=== PATIENT | male | born 1955 | race Native Hawaiian/Other Pacific Islander ===

== ENCOUNTER 2017-08-18 17:02 | Outpatient (CLI) | payer BC ==
[2017-08-18 17:12] LABS: PLATELET COUNT 244 K/uL (142-355)
[2017-08-18 17:44] LABS: POTASSIUM 4.4 mmol/L (3.6-5.2)
== END 2017-08-18 19:16 | disposition home or self-care (01) ==
LOC: LAB 17:02
PROVIDERS: Internal Medicine
DX: Z00.00 Encounter for general adult medical examination without abnormal findings (principal)
CPT/HCPCS: 36415; 80053; 80061; 81000; 84153; 84443; 85027

== ENCOUNTER 2017-08-19 16:35 | Outpatient (CLI) | payer BC | END 2017-08-19 23:35 | disposition home or self-care (01) | LOC: LAB 16:35 | DX: E11.9 Type 2 diabetes mellitus without complications (principal) | CPT/HCPCS: 83036 ==

== ENCOUNTER 2018-11-18 12:33 | Outpatient (CLI) | payer BC | END 2018-11-18 20:32 | disposition home or self-care (01) | LOC: RAD 12:33 | DX: M79.672 Pain in left foot (principal) ==

== ENCOUNTER 2018-12-14 10:02 | Outpatient (CLI) | payer BC | END 2018-12-14 20:27 | disposition home or self-care (01) | LOC: LABW 10:02 | DX: E11.9 Type 2 diabetes mellitus without complications (principal) | CPT/HCPCS: 36415; 83036 ==

== ENCOUNTER 2020-02-09 08:18 | Outpatient (CLI) | payer BC ==
[2020-02-09 08:30] LABS: PLATELET COUNT 211 K/uL (142-355)
[2020-02-09 08:49] LABS: POTASSIUM 4.6 mmol/L (3.6-5.2)
== END 2020-02-09 18:57 | disposition home or self-care (01) ==
LOC: LABW 08:18
PROVIDERS: ATTEND Internal Medicine Cardiovascular Disease
DX: E78.5 Hyperlipidemia, unspecified (principal); E11.59 Type 2 diabetes mellitus with other circulatory complications; I25.10 Atherosclerotic heart disease of native coronary artery without angina pectoris
CPT/HCPCS: 36415; 80053; 80061; 83036; 85027

== ENCOUNTER 2020-09-28 07:50 | Outpatient (CLI) | payer BC | END 2020-09-28 19:03 | disposition home or self-care (01) | LOC: US 07:50 | PROVIDERS: ATTEND Internal Medicine Cardiovascular Disease | DX: R09.89 Other specified symptoms and signs involving the circulatory and respiratory systems (principal) ==

== ENCOUNTER 2021-03-11 12:30 | Inpatient (IN) | payer BC ==
[~2021-03-11] VITALS: Ht 180.3 cm; Wt 136.6 kg
[2021-03-11 14:12] LABS: PLATELET COUNT 262 K/uL (142-355)
[2021-03-11 14:36] LABS: POTASSIUM 3.4 mmol/L (3.6-5.2)
[2021-03-11] MEDS ORDERED: AMOXICILLIN PO (15:21)
[2021-03-11] MEDS ORDERED: CLA PO (15:21)
[2021-03-11] MEDS ORDERED: CIPROFLOXACIN500 M1 PO (15:22)
[2021-03-11] MEDS ORDERED: REPATHA SUR140 MG/ML SC (15:23)
[2021-03-11] MEDS ORDERED: AMLODIPINE BESYLATE PO (15:24)
[2021-03-11] MEDS ORDERED: HYZAAR1 TA2 PO (15:25)
[2021-03-11] MEDS ORDERED: VICTOZA18 MG/3 ML SC (15:26)
[2021-03-11] MEDS ORDERED: INSU300I SC (15:26)
[2021-03-11] MEDS ORDERED: METO50TA27 PO (15:28)
[2021-03-11] MEDS ORDERED: ASPIR-8181 MG PO (15:29)
[2021-03-11 15:30] VITALS: BP 144/72; TEMP 97.8; Ht 180.3 cm; Wt 136.6 kg
[2021-03-11 16:00] VITALS: BP 138/68; TEMP 97.7
[2021-03-11 20:00] VITALS: BP 148/68; TEMP 98.6
[2021-03-12] VITALS: BP 134/58; TEMP 99.3
[2021-03-12 04:00] VITALS: BP 111/60; TEMP 98.2
[2021-03-12 08:00] VITALS: BP 136/62; TEMP 98.3
[2021-03-12 08:36] LABS: POTASSIUM 3.3 mmol/L (3.6-5.2)
[2021-03-12 08:48] LABS: PLATELET COUNT 260 K/uL (142-355)
[2021-03-12 12:00] VITALS: BP 133/62; TEMP 97.6
[2021-03-12 16:00] VITALS: BP 133/63; TEMP 98.3
[2021-03-12 20:00] VITALS: BP 143/59; TEMP 97.9
[2021-03-13] VITALS: BP 133/59; TEMP 98.7
[2021-03-13 04:00] VITALS: BP 131/44; TEMP 98.6
[2021-03-13 08:00] VITALS: BP 151/74; TEMP 98.3
[2021-03-13 20:25] VITALS: BP 146/66; TEMP 98.6
[2021-03-14 00:17] VITALS: BP 149/74; TEMP 99.7
[2021-03-14 03:52] VITALS: BP 159/62; TEMP 100
[2021-03-14 08:00] VITALS: BP 156/66; TEMP 98.7
[2021-03-14 09:12] LABS: PLATELET COUNT 219 K/uL (142-355)
[2021-03-14 09:56] LABS: POTASSIUM 3.6 mmol/L (3.6-5.2)
[2021-03-14 12:00] VITALS: BP 126/58; TEMP 100
[2021-03-14 16:00] VITALS: BP 160/69; TEMP 99.1
[2021-03-14 19:56] VITALS: BP 149/65; TEMP 99.3
[2021-03-15 00:03] VITALS: BP 153/70; TEMP 98.5
[2021-03-15 04:09] VITALS: BP 150/74; TEMP 98.7
[2021-03-15 08:00] VITALS: BP 151/67; TEMP 98.8
[2021-03-15 12:00] VITALS: BP 150/66; TEMP 98.3
[2021-03-15 16:00] VITALS: BP 146/77; TEMP 98.9
[2021-03-15 20:00] VITALS: BP 150/64; TEMP 98.2
[2021-03-16] VITALS: BP 135/62; TEMP 98.3
[2021-03-16 04:00] VITALS: BP 136/72; TEMP 97.7
[2021-03-16 04:57] LABS: POTASSIUM 3.3 mmol/L (3.6-5.2)
[2021-03-16 05:16] LABS: PLATELET COUNT 215 K/uL (142-355)
[2021-03-16 08:00] VITALS: BP 166/77; TEMP 97.6
[2021-03-16 12:00] VITALS: BP 160/67; TEMP 98.7
[2021-03-16 16:00] VITALS: BP 159/70; TEMP 98.5
[2021-03-16 20:00] VITALS: BP 161/74; TEMP 98.3
[2021-03-17] VITALS: BP 151/70; TEMP 98.5
[2021-03-17 04:00] VITALS: BP 168/73; TEMP 98.6
[2021-03-17 08:00] VITALS: BP 164/74; TEMP 98.4
[2021-03-17 12:00] VITALS: BP 166/58; TEMP 99
[2021-03-17 16:00] VITALS: BP 84/44; TEMP 99.5
[2021-03-17 20:00] VITALS: BP 162/78; TEMP 98.1
[2021-03-18] VITALS: BP 175/74; TEMP 98.9
[2021-03-18 04:00] VITALS: BP 148/69; TEMP 98.9
[2021-03-18 05:06] LABS: PLATELET COUNT 228 K/uL (142-355)
[2021-03-18 05:40] LABS: POTASSIUM 3.5 mmol/L (3.6-5.2)
[2021-03-18 08:00] VITALS: BP 158/74; TEMP 98.6
[2021-03-18 12:00] VITALS: BP 144/68; TEMP 98.3
[2021-03-18 16:00] VITALS: BP 160/74; TEMP 97.7
[2021-03-18 20:21] VITALS: BP 169/81; TEMP 98.7
[2021-03-19 00:02] VITALS: BP 146/68; TEMP 98.5
[2021-03-19 04:02] VITALS: BP 154/75; TEMP 98.3
[2021-03-19 08:00] VITALS: BP 154/74; TEMP 98.4
[2021-03-19 12:00] VITALS: BP 151/71; TEMP 98.6
[2021-03-19 16:00] VITALS: BP 151/73; TEMP 97.9
[2021-03-19 20:28] VITALS: BP 182/79; TEMP 98.3
[2021-03-20] VITALS: BP 140/65; TEMP 98
[2021-03-20 04:00] VITALS: BP 146/68; TEMP 97.6
[2021-03-20 08:00] VITALS: BP 152/77; TEMP 97.7
[2021-03-20 12:00] VITALS: BP 169/72; TEMP 98.1
[2021-03-20 16:00] VITALS: BP 140/69; TEMP 98.3
[2021-03-20 20:00] VITALS: BP 140/62; TEMP 98
[2021-03-21] VITALS (7 sets, daily range): BP systolic 111–157; BP diastolic 59–75; TEMP 97.9–98.4
[2021-03-21 04:39] LABS: POTASSIUM 3.8 mmol/L (3.6-5.2)
[2021-03-21 04:45] LABS: PLATELET COUNT 223 K/uL (142-355)
[2021-03-22 04:00] VITALS: BP 159/75; TEMP 97.5
[2021-03-22 08:00] VITALS: BP 151/75; TEMP 97.8
[2021-03-22 12:00] VITALS: BP 138/61; TEMP 98.2
[2021-03-22 16:00] VITALS: BP 153/73; TEMP 98
[2021-03-22 19:43] VITALS: BP 151/64; TEMP 99
[2021-03-23] VITALS (7 sets, daily range): BP systolic 126–162; BP diastolic 61–76; TEMP 97.9–98.4
[2021-03-24 04:00] VITALS: BP 156/72; TEMP 97.4
[2021-03-24 08:00] VITALS: BP 163/75; TEMP 98.2
[2021-03-24 12:00] VITALS: BP 158/66; TEMP 98.4
[2021-03-24 16:00] VITALS: BP 164/69; TEMP 98.4
[2021-03-24 20:00] VITALS: BP 162/71; TEMP 98.2
[2021-03-24 23:53] VITALS: BP 152/66; TEMP 98.6
[2021-03-25 04:00] VITALS: BP 153/72; TEMP 98.1
[2021-03-25 08:00] VITALS: BP 165/74; TEMP 98.4
[2021-03-25 12:00] VITALS: BP 142/59; TEMP 98.4
[2021-03-25 16:00] VITALS: BP 153/69; TEMP 98.1
[2021-03-25 20:00] VITALS: BP 147/62; TEMP 98.3
[2021-03-26] VITALS: BP 144/65; TEMP 97.9
[2021-03-26 04:00] VITALS: BP 123/64; TEMP 98.1
[2021-03-26 08:00] VITALS: BP 157/70; TEMP 99.1
== END 2021-03-26 11:15 | disposition home or self-care (01) | DRG 603 ==
LOC: MED/SURG 12:30
PROVIDERS: Internal Medicine; ADMIT Internal Medicine Endocrinology, Diabetes & Metabolism; ATTEND Internal Medicine Endocrinology, Diabetes & Metabolism
PROC: 2W1MX6Z Compression of Left Lower Extremity using Pressure Dressing (ICD-10-PCS; principal; 2021-03-22)
DX: L02.416 Cutaneous abscess of left lower limb (principal); I25.110 Atherosclerotic heart disease of native coronary artery with unstable angina pectoris; Z68.41 Body mass index [BMI] 40.0-44.9, adult; B95.62 Methicillin resistant Staphylococcus aureus infection as the cause of diseases classified elsewhere; E11.9 Type 2 diabetes mellitus without complications; I10 Essential (primary) hypertension; E78.49 Other hyperlipidemia; E66.01 Morbid (severe) obesity due to excess calories; M62.81 Muscle weakness (generalized); R26.81 Unsteadiness on feet; E87.6 Hypokalemia
CPT/HCPCS: 36415; 80048; 80053; 80202; 82948; 85007; 85027; 85652; 86140; 87040; 87635; 96365; 96367; 96372; J1650; J1815; J1885; J3370; J7040; U0003